=== PATIENT | male | born 1970 | race Hispanic/Latino ===

== ENCOUNTER 2017-04-17 19:10 | Inpatient (IN) | payer SELFPAY ==
[~2017-04-17] VITALS: Ht 177.8 cm; Wt 95.0 kg
[~2017-04-17 19:10] MED LIST: NO CURRENT MEDS; PERCOCET 5/325M1 TAB PO
[2017-04-17] MEDS ORDERED: METFORMIN500 MG PO (19:35)
[2017-04-17 19:42] LABS: HEMATOCRIT 36.5 % (39.0-50.0); HEMOGLOBIN 13.3 g/dl (14.0-18.0); IMMATURE GRANULOCYTES 0.5 % (0.0-1.0); MEAN CELL VOLUME 83.3 fL CALC (80.0-100.0); MEAN CORPUSCULAR HGB 30.4 pG CALC (26.0-32.0); MEAN CORPUSCULAR HGB CONC 36.4 g/L CALC (32.0-36.0); NEUT# 3.99 thou/uL (1.82-7.42); RED BLOOD COUNT 4.38 mill/uL (4.70-6.10); RED CELL DISTRI WIDTH 11.6 % (11.5-15.5)
[2017-04-17 19:56] LABS: ALBUMIN 4.4 g/dL (3.2-5.0); ALKALINE PHOSPHATASE 183 u/l (38-126); ANION GAP 18 (6-22 (CALC)); BILIRUBIN, TOTAL 0.5 mg/dL (0.0-1.4); BUN 41 mg/dL (9-20); BUN/CREATININE RATIO 21 (12-20 (CALC)); CALCIUM 9.9 mg/dL (8.4-10.2); CARBON DIOXIDE 22 mmol/l (22-30); CHLORIDE 88 mmol/l (95-108); GFR 36 ML/MIN (>=60 (CALC)); GFR FOR AFR.AMER. 44 ML/MIN (>=60 (CALC)); POTASSIUM 4.5 mmol/l (3.5-5.1); SGOT/AST 21 u/l (17-59); SGPT/ALT 37 u/l (21-72); SODIUM 124 mmol/l (137-146); TOTAL PROTEIN 7.8 g/dL (6.3-8.2)
[2017-04-17 20:00] LABS: GLUCOSE 560 mg/dL (75-110)
[2017-04-17 20:07] LABS: MYOGLOBIN 125 ng/mL (0 - 121)
[2017-04-17 21:13] LABS: MAGNESIUM 1.9 mg/dL (1.6-2.3)
[2017-04-17 21:56] VITALS: BP 133/91
[2017-04-17 23:28] LABS: CALCIUM 9.3 mg/dL (8.4-10.2); CREATININE 1.7 mg/dL (0.7-1.3); POTASSIUM 4.3 mmol/l (3.5-5.1)
[2017-04-17 23:55] VITALS: BP 118/80
[2017-04-18 00:20] LABS: URINE BILIRUBIN - DIPSTICK NEGATIVE (NEGATIVE); URINE BLOOD DIPSTICK SMALL (NEGATIVE); URINE CLARITY CLEAR; URINE COLOR YELLOW; URINE GLUCOSE - DIPSTICK >=1000 mg/dL (NEGATIVE); URINE KETONE NEGATIVE (NEGATIVE); URINE LEUK ESTERASE NEGATIVE (Negative); URINE NITRITE - DIPSTICK NEGATIVE (Negative); URINE PH 5.5 (4.5-8.0); URINE PROTEIN - DIPSTICK 30 mg/dL (NEG-TRACE); URINE UROBILINOGEN - DIPSTICK 0.2 E.U./dL (0.2)
[2017-04-18 00:31] LABS: URINE BACTERIA FEW hpf; URINE MUCUS FEW hpf (NONE-FEW); URINE SQUAMOUS EPITHELIAL CELL FEW EPI/hpf (0-FEW)
[2017-04-18 04:35] VITALS: BP 123/81
[2017-04-18 06:19] LABS: HEMATOCRIT 33.5 % (39.0-50.0); HEMOGLOBIN 12.2 g/dl (14.0-18.0); IMMATURE GRANULOCYTES 0.3 % (0.0-1.0); MEAN CELL VOLUME 83.8 fL CALC (80.0-100.0); MEAN CORPUSCULAR HGB 30.5 pG CALC (26.0-32.0); MEAN CORPUSCULAR HGB CONC 36.4 g/L CALC (32.0-36.0); NEUT# 3.98 thou/uL (1.82-7.42); RED CELL DISTRI WIDTH 11.7 % (11.5-15.5)
[2017-04-18 06:29] LABS: CHOLESTEROL HDL RATIO 8.5 (<4.4 (CALC)); CREATININE 1.7 mg/dL (0.7-1.3); POTASSIUM 4.5 mmol/l (3.5-5.1)
[2017-04-18 07:24] VITALS: BP 123/81
[2017-04-18 10:58] VITALS: BP 124/80
[2017-04-18 15:10] VITALS: BP 128/86
[2017-04-18 19:15] VITALS: BP 128/82
[2017-04-18 23:49] VITALS: BP 138/88
[2017-04-19 04:22] VITALS: BP 137/86
[2017-04-19 06:56] LABS: HEMATOCRIT 36.7 % (39.0-50.0); HEMOGLOBIN 13.2 g/dl (14.0-18.0); MEAN CELL VOLUME 83.8 fL CALC (80.0-100.0); MEAN CORPUSCULAR HGB 30.1 pG CALC (26.0-32.0); RED BLOOD COUNT 4.38 mill/uL (4.70-6.10); RED CELL DISTRI WIDTH 11.7 % (11.5-15.5)
[2017-04-19 07:09] LABS: ANION GAP 14 (6-22 (CALC)); BUN 24 mg/dL (9-20); BUN/CREATININE RATIO 18 (12-20 (CALC)); CALCIUM 9.4 mg/dL (8.4-10.2); CARBON DIOXIDE 24 mmol/l (22-30); CHLORIDE 101 mmol/l (95-108); CREATININE 1.3 mg/dL (0.7-1.3); GFR 59 ML/MIN (>=60 (CALC)); GFR FOR AFR.AMER. > 60 ML/MIN (>=60 (CALC)); GLUCOSE 204 mg/dL (75-110); SODIUM 134 mmol/l (137-146)
[2017-04-19 08:42] VITALS: BP 141/96
[2017-04-19 11:58] VITALS: BP 138/94
[2017-04-19] MEDS ORDERED: ATORVASTATIN CA40 MG PO (12:55)
[2017-04-19] MEDS ORDERED: ADLT ASA LOW81 MG PO (12:55)
[2017-04-19] MEDS ORDERED: METFORMIN500 MG PO (12:56)
[2017-04-19] MEDS ORDERED: LEVEMIR100 UNIT/M SC (12:56)
== END 2017-04-19 14:01 | disposition home or self-care (01) | DRG 683 ==
LOC: ED 19:10 → ED-I 20:45 → ED 20:50 → MS2 20:51 → ED 20:51 → MS2 04-18 12:06
PROVIDERS: Emergency Medicine; Internal Medicine; ADMIT Internal Medicine; ATTEND Internal Medicine
DX: N17.9 Acute kidney failure, unspecified (principal); E87.1 Hypo-osmolality and hyponatremia; E11.65 Type 2 diabetes mellitus with hyperglycemia; E11.69 Type 2 diabetes mellitus with other specified complication; E86.0 Dehydration; E78.5 Hyperlipidemia, unspecified; D63.8 Anemia in other chronic diseases classified elsewhere; Z91.19 Patient's noncompliance with other medical treatment and regimen; Z79.84 Long term (current) use of oral hypoglycemic drugs

== ENCOUNTER 2021-11-22 08:57 | Day surgery (SDC) | payer BC ==
[~2021-11-22] VITALS: Ht 172.7 cm; Wt 108.9 kg
[~2021-11-22 08:57] MED LIST changes: +ADLT ASA LOW81 MG PO; +ASPIRIN 81 LOW81 MG PO; +ATORVASTATIN CA40 MG PO; +COZAAR100 MG PO; +EZETIMIBE10 MG PO; +GLIPIZIDE ER5 M1 PO; +HYDRALAZINE50 MG PO; +KAPSPARGO SPRIN50 MG PO; +LEVEMIR100 UNIT/M SC; +METFORMIN500 MG PO; +ZANTAC 36010 MG PO
[2021-11-22 11:41] VITALS: BP 163/99
== END 2021-11-22 12:07 | disposition home or self-care (01) | DRG 951 ==
LOC: ENDO 08:57
PROVIDERS: ATTEND Surgery
PROC: 0DJD8ZZ Inspection of Lower Intestinal Tract, Via Natural or Artificial Opening Endoscopic (ICD-10-PCS; principal; 2021-11-22)
DX: Z12.11 Encounter for screening for malignant neoplasm of colon (principal); I10 Essential (primary) hypertension; E11.9 Type 2 diabetes mellitus without complications; Z79.84 Long term (current) use of oral hypoglycemic drugs; Z79.4 Long term (current) use of insulin